=== PATIENT | male | born 1940 | race Caucasian/White ===

== ENCOUNTER 2017-10-07 06:18 | Day surgery (SDC) | payer BC ==
[2017-10-06 08:17] VITALS: BMI 28.1
[~2017-10-07 06:18] MED LIST: Cyclopentolate 1% Opth Drop 2 ML BOT FS SCH; Fluorouracil 100 MG, Enoxaparin Sodium 25 MG, EPINEPHrine 0.3 MG in Ophthalmic Irrigati... IVPB SCH; Phenylephrine 2.5% Ophth Soln 5 ML BOT FS SCH
[2017-10-07] MEDS ORDERED: Cyclopentolate 1% Opth Drop 2 ML BOT ONE (06:40)
[2017-10-07] MEDS ORDERED: Phenylephrine 2.5% Ophth Soln 5 ML BOT ONE (06:40)
[2017-10-07] MEDS ORDERED: Midazolam HCl 2 mg/2 ml Vial ONE (07:55)
[2017-10-07] MEDS ORDERED: PHENYLEPHRINE-NS 100 MCG/ML 10 ML SYRINGE ONE (07:55)
[2017-10-07] MEDS ORDERED: Fentanyl 100 MCG/2 ML VIAL ONE (07:55)
[2017-10-07] MEDS ORDERED: PROPOFOL 20 ML ONE (07:55)
[2017-10-07] MEDS ORDERED: Lidocaine 2% 10 ML INJ ONE (07:55)
--- NOTE | 2017-10-07 10:16 | OP ---
DATE OF PROCEDURE: 10/07/2017 PREOPERATIVE DIAGNOSIS: Macular hole, left eye. POSTOPERATIVE DIAGNOSIS: Macular hole, left eye. PROCEDURE: Pars plana vitrectomy, internal limiting membrane peel, left eye. SURGEON: Dr. Josué Licona ANESTHESIA: Local with monitored anesthesia care. PROCEDURE IN DETAIL: The patient was identified in the preoperative holding area. Appropriate infor med consent for the planned surgical procedure on the left eye had been obtained. The patient was tr ansported to the operative suite. Appropriate cardiopulmonary monitoring established. Local anesthe thalia obtained using retrobulbar and modified Van Lint lid block using 50/50 mixture of 4% lidocaine an d 0.75% bupivacaine. The patient was prepped and draped in the usual sterile manner for ophthalmic s urgery on the left eye. Lid speculum was placed in the left eye. The 25-gauge trocars placed in con junctiva and sclera supratemporally, inferotemporally, and supranasally. Infusion line was placed in ferotemporally. Light pipe and vitreous cutter were inserted into the eye. Core vitrectomy was perf ormed. Indocyanine green dye was infused in the posterior pole x1, identifying the internal limiting membrane. This was elevated using membrane scraper and peeled across the macula using end-gripping forceps. Complete air fluid exchange was performed with 10 minutes being allowed for fluid to drain posteriorly. Indirect ophthalmoscopy was used to examine the retina 360 degrees. No holes, breaks o r tears were identified. Prophylactic laser was placed behind the sclerotomy sites. Then 28% sulfur hexafluoride gas was infused into the eye. Trocars were removed. Supranasal sclerotomy was sutured closed. Retrobulbar Kenalog and subconjunctival Ancef were placed. Atropine and antibiotic ointmen t placed, and the eye was patched and shielded. The patient was taken the postoperative recovery uni t in good condition having suffered no immediate perioperative complications. DISCHARGE INSTRUCTIONS: The patient was instructed to keep patch and shield on, avoid lifting or mahendra ding, and follow up in the morning with Dr. Licona.
[2017-10-07] MEDS ORDERED: PROPOFOL 200 MG/20 ML VIAL ONE (13:51)
[2017-10-07] MEDS ORDERED: Lidocaine 1% PF 5 ML VIAL ONE (13:51)
== END 2017-10-07 09:39 | disposition home or self-care (01) ==
LOC: SDC 06:18
PROVIDERS: ATTEND Ophthalmology Retina Specialist
PROC: 08NF3ZZ Release Left Retina, Percutaneous Approach (ICD-10-PCS; principal; 2017-10-07)
PROC: 08T53ZZ Resection of Left Vitreous, Percutaneous Approach (ICD-10-PCS; principal; 2017-10-07)
DX: H35.342 Macular cyst, hole, or pseudohole, left eye (principal); Z88.0 Allergy status to penicillin; Z79.899 Other long term (current) drug therapy
CPT/HCPCS: 67025; J0171; J1650; J2001; J2250; J2704; J3010; J9190

== ENCOUNTER 2022-02-02 10:14 | Outpatient (CLI) | payer BC | END 2022-02-02 10:15 | disposition home or self-care (01) | LOC: RAD 10:14 | PROVIDERS: ATTEND Internal Medicine Critical Care Medicine | DX: J44.1 Chronic obstructive pulmonary disease with (acute) exacerbation (principal) | CPT/HCPCS: 71046 ==